=== PATIENT | male | born 1950 ===

== ENCOUNTER 2018-02-05 09:35 | Day surgery (SDC) | payer MEDICAID ==
[2018-02-04 15:28] VITALS: BMI 27.9
[2018-02-05] MEDS ORDERED: Lactated Ringer's 1,000 ML IV ONE (10:00)
[2018-02-05] MEDS ORDERED: Phenylephrine 2.5% Opht Soln OD ONE (10:10)
[2018-02-05] MEDS ORDERED: Flurbiprofen 0.03% Opht SOLN OD ONE (10:20)
[2018-02-05] MEDS ORDERED: Maxitrol Opht Susp ONE (10:23)
[2018-02-05] MEDS ORDERED: Lidocaine 1% 20 MG/2 ML PF AMP ONE (10:23)
[2018-02-05] MEDS ORDERED: Tetracaine 0.5% Ophth 2 ML BOTTLE ONE (10:23)
[2018-02-05] MEDS ORDERED: STERILE IRRIGATING SOLUTION 45 ML IR ONE (10:24)
[2018-02-05] MEDS ORDERED: Pilocarpine 1% Opht Soln ONE (10:24)
[2018-02-05] MEDS ORDERED: EPINEPHrine 1 mg/ml (1:1000) Inj ONE (10:24)
[2018-02-05] MEDS ORDERED: CA CL/K CL/NA CL 500 ML IR ONE (10:24)
[2018-02-05] MEDS ORDERED: Chondroitin/Hyaluronate Opth Syringe KIT (0.55 ml-0.5 ml) IO ONE ×2 (10:25→12:31)
[2018-02-05] MEDS ORDERED: Carbachol 0.01% IO ONE ×2 (10:25→13:40)
[2018-02-05] MEDS ORDERED: Povidone Iodine 5% Opht SOLUTION ONE (10:25)
[2018-02-05] MEDS ORDERED: Tropicamide 1% Opht 150 DROP/15 ML OD ONE (10:30)
[2018-02-05] MEDS ORDERED: Hyaluronidase 200 UNITS/ML VIAL ONE (10:38)
[2018-02-05] MEDS ORDERED: Bupivacaine HCl 0.5% PF (30 ml) Inj ONE (10:38)
[2018-02-05] MEDS ORDERED: Mepivacaine HCl 2% (20ml) Inj ONE (10:39)
[2018-02-05] MEDS ORDERED: Midazolam 2 MG/2 ML VIAL ONE (12:41)
[2018-02-05] MEDS ORDERED: Propofol 10 mg/ml Inj (20 ML) ONE (12:55)
[2018-02-05 14:17] VITALS: TEMP 97.4
[2018-02-05 14:25] VITALS: RESP 18
[2018-02-05 14:32] VITALS: BP 150/75; PULSE 53; O2SAT 98
--- NOTE | 2018-02-20 15:08 | OP ---
PROCEDURE DATE: 02/05/2018 SURGEON: DANITA STILES MD ANESTHESIOLOGIST: LORNA COURTNEY MD ANESTHESIA: LOCAL / IV SEDATION PRE-OP DIAGNOSIS: Cataract and Uncontrolled Glaucoma OD POST-OP DIAGNOSIS: Cataract and Uncontrolled Glaucoma OD PROCEDURE: Clear Corneal Phacoemulsifications with Lens Implant and Express Shunt Implantation DESCRIPTION OF PROCEDURE: After the patient was prepped and draped in the usual manner for sterile opthalmic surgery, local IV sedation was administered. Eye seals were applied to the upper andlower lid margins and an adult lid speculum was placed within the lids. Under micro surgical control, a clear corneal micro incision was made into the anteriorchamber. One percent Xylocaine MPF is instilled into the anterior chamber to achieve adequate intro-ocular anesthesia. At this time, a viscoelastic is injected into the anterior chamber for protection of the endo- thelium and for maintenance of the chamber depth. A 360 degree continuous curvilinear capsularrhexis is performed using a pre-bent 25 gauge needle. [place]- dissection and hydro-delineation is per-formedusing a Sanchez cannula and balanced salt solution. Utilizing the tip of thePearce cannula, the nucleus is rotated freely within the capsular bag. A standardone-handed phaco- emulsification is utilized at the time for sculpting and rotating of the nucleus. The nucleus is fragmented in its intirety and aspirated without any consequence. An I&A is carried out to evacuate cortical material. No residual cortex is noted within the capsular bag. The posterior capsule is noted to be clear.Additional viscoelastic is injected into the capsular bag at this time in preparationfor lens implantation. After this has been satisfactorily achieved,the intra-ocularlens is injected through the corneal incision into the capsular bag. The intra-ocularlens in manipulated until it is properly oriented and the viscoelastic is evacuated from the capsular bag and anterior chamber. The anterior chamber is reformed withbalanced salt solution. A limbal based conjunctival flap is fashioned and a crescentblade utilized to clear all tenons fascia from the scleral surface. A rectangular half-depth lamellar scleral flap is fashioned down to the blue line. A pre-incision is carried out utilizing a 25 gauge 3/4" needle. The Espress shunt is then implanted into the anterior chamber. The lamellar scleral flap is sutured at both the medial and temporal edges with 8-0 Vicryl suture. The anterior chamber is reformed with BSS and viscoelastic is injected under the conjunctival flap. This terminates the procedure.The speculum and lid drapes are removed and Dexacidin opthalmic suspension and 1 drop [place] 1% was applied to the eye. The patient is brought to the post anesthesia recovery area with stable vital signs. DDANITA SUBRAMANIAN MDD
== END 2018-02-05 14:37 | disposition home or self-care (01) ==
LOC: H.OPSURG 09:35
PROVIDERS: ATTEND Ophthalmology
DX: H25.811 Combined forms of age-related cataract, right eye (principal); E78.5 Hyperlipidemia, unspecified; H40.89 Other specified glaucoma
CPT/HCPCS: 66984; J0171; J2250; J2704; J3010; J3470; J7120; V2632